=== PATIENT | male | born 1965 | race Hispanic/Latino ===

== ENCOUNTER → 2018-08-13 | Day surgery (SDC) | payer BC ==
[~2018-08-13] MED LIST: ARTHROTEC EC 71 EACH PO; FENTANYL CITRATE/PF 100MCG/2 ML INJ ONE; FERROUS GLUCONATE PO; FISH OIL PO; FLOMAX0.4 MG PO; FOLIC ACID1 MG PO; GLUCAGON FOR INJ 1 MG VIAL ONE; HYOSCYAMINE 0.125 MG TAB ONE; LISINOPRIL10 MG PO; METFORMIN HCL1000 MG PO; MIDAZOLAM HCL 5MG/ML 2ML VIAL ONE; MULTI-VITAMIN1 EACH; NORCO 10-325 T1 EACH PO; NORCO 5-325 TA1 EACH PO; PROPOFOL IV EMULSION 10 MG/ML 50 ML VIAL ONE; TRAMADOL; VITAMIN B-121000 MC1
--- OUTSIDE RECORDS SUMMARY | 2018-08-13 06:15 | XMS REPORT | Clinical Summary ---
Author Author [facility] Address Unknown Phone Unavailable Care Team Providers Care Oracle R12 Developer Name Role Phone Milton Simms MD PCP Allergies No Known Allergies Medications End Date Status Medication Sig Dispensed Refills Start Date Active diclofenac (VOLTAREN) 75 TAKE 1 TABLET 180 tablet 2 MG EC tablet BY MOUTH 9 TWICE A DAY NEEDED Status Hospital, Clinic, or Ordered Dose Route Frequency Start End Date Other Facility Date Administered Medication Ended methylPREDNISolone 40 mg IM once 02/23/19 acetate (DEPO-MEDROL) 19 9 injection 40 mgIndications: Primary osteoarthritis of both knees Ended bupivacaine (MARCAINE) 1 mL inj once 02/23/19 0.25 % (2.5 mg/mL) 19 9 injection 1 mLIndications: Primary osteoarthritis of both knees Ended methylPREDNISolone 40 mg IM once 02/23/19 acetate (DEPO-MEDROL) 19 9 injection 40 mgIndications: Primary osteoarthritis of both knees Ended bupivacaine (MARCAINE) 1 mL inj once 02/23/19 0.25 % (2.5 mg/mL) 19 9 injection 1 mLIndications: Primary osteoarthritis of both knees Active Problems Problem Noted Date Primary osteoarthritis of both knees 03/04/2018 Class 3 severe obesity with body mass index (BMI) of 45.0 to 49.9 in adult 03/04/2018 Encounters Care Team Description Date Type Specialty Mathew Domingo Jr., MD 05/15/2018 Refill Orthopedic Surgery Mathew Domingo Jr., MD Primary osteoarthritis of both knees (Primary Dx); Class 3 severe obesity with body mass index (BMI) of 45.0 to 49.9 in adult, unspecified obesity type, unspecified whether serious comorbidity present (HCC); Enchondroma of left femur 02/23/2018 Office Visit Orthopedic Surgery [place] Chronic pain of both knees (Primary Dx) 02/17/2018 Orders Only Orthopedic Surgery Manjinder [place] MA Pain in both knees, unspecified chronicity (Primary Dx) 08/25/2017 Orders Only Ortho Sports Medicine after 08/12/2017 Family History Medical History Relation Name Comments No Known Problems Brother No Known Problems Father No Known Problems Mother No Known Problems Sister Relation Name Status Comments Brother Father Mother Sister Social History Date Tobacco Use Types Packs/Day Years Used Never Smoker Smokeless Tobacco: Never Used Alcohol Use Drinks/Week oz/Week Comments No Alcohol Habits Answer Date Recorded How often do you have a drink containing alcohol? Never 02/23/2018 How many drinks containing alcohol do you have on Not asked a typical day when you are drinking? How often do you have six or more drinks on one Not asked occasion? Sex Assigned at Date Recorded Not on file Industry Job Start Date Occupation Not on file Not on file Not on file Travel End Travel History Travel Start No recent travel history available. Last Filed Vital Signs Time Taken Vital Sign Reading 02/23/2018 10:29 AM [facility] Blood Pressure 116/75 02/23/2018 10:29 AM [facility] Pulse 62 - Temperature - - Respiratory Rate - - Oxygen Saturation - - Inhaled Oxygen - Concentration 02/23/2018 10:29 AM [facility] Weight 150 kg (330 lb) 02/23/2018 10:29 AM [facility] Height 177.8 cm (5' 10") 02/23/2018 10:29 AM [facility] Body Mass Index 47.35 Plan of Treatment Health Maintenance Due Date Last Done Comments COLONOSCOPY SCREENING 2013 SHINGLES VACCINES (#1) 2013 INFLUENZA VACCINE 09/15/2018 Procedures Comments Procedure Name Priority Date/Time Associated Diagnosis XR KNEE 3 VW BILATERAL Routine 02/23/2018 Chronic pain of both 9:42 AM [facility] knees MT ARTHROCENTESIS Routine 02/23/2018 Primary osteoarthritis of ASPIR&/INJ MAJOR JT/BURSA 9:30 AM [facility] both knees W/O US after 08/12/2017 Results * XR Knee 3 Vw Bilateral (02/23/2018 9:42 AM [facility]) Specimen Narrative Performed At [facility] No comparisons: Right : significant medial joint space narrowing. Otherwise mild OA. Left : significant medial joint space narrowing. Femoral shaft enchondroma noted. No comparison films immediately available. Consider MRI if this has not been done is some time Performing Organization Address City/State/Zipcode Phone Number [facility] [address] [place] [address] * Large Joint Arthrocentesis: knee, Bilateral knee (02/23/2018 9:30 AM [facility]) Narrative Performed At Mathew Domingo Jr., MD 03/04/20185:59 PM Large Joint Arthrocentesis: knee, Bilateral knee Consent given by: patient Site marked: site marked Timeout: Immediately prior to procedure a time out was called to verify the correct patient, procedure, equipment, client support professional and site/side marked as required Supporting Documentation Indications: pain Procedure Details Preparation: Patient was prepped and draped in the usual sterile fashion Location: knee - Bilateral knee Right side: Needle size: 22 G Approach: anteromedial Right knee medications administered: 40 mg methylPREDNISolone acetate 40 mg/mL; 1 mL bupivacaine 0.5 % (5 mg/mL) Patient tolerance: patient tolerated the procedure well with no immediate complications Left side: Needle size: 22 G Approach: anteromedial Left knee medications administered: 40 mg methylPREDNISolone acetate 40 mg/mL; 1 mL bupivacaine 0.5 % (5 mg/mL) Patient tolerance: patient tolerated the procedure well with no immediate complications after 08/12/2017 Insurance Type Payer Benefit Subscriber ID Effective Phone Address Plan / Dates Group PPO BCBS BCBS xxxxxxxxx 2010-P CHOICE resent PPO/DIMITRY MORGAN PPO Advance Directives Patient has advance care planning documents on file. For more information, madhav lobtao contact: Seb Paris [address] [place] [address]
[2018-08-13 09:15] VITALS: BP 119/78
--- NOTE | 2018-08-13 09:23 | Operative Report ---
DATE OF PROCEDURE: 08/13/2018 SURGEON: Jason Baker MD INDICATION FOR COLONOSCOPY: Colorectal cancer screening. MEDICATION: The patient was done under MAC. Please see anesthesiologist's note. PROCEDURE IN DETAIL: With the patient in left lateral decubitus position, the flexible fiberoptic Olympus colonoscope was inserted into the rectum with ease and advanced all the way to the cecum. The scope was then withdrawn slowly. Mucosa overlying the cecum, ascending colon, transverse, descending, sigmoid, and rectum grossly appeared to be within normal limits. Of note, the colon was somewhat irritable and spastic. Visualization was suboptimal. The scope was then retroflexed into the distal rectum and small internal hemorrhoids were noted, none of which was actively bleeding. The scope was then straightened out, it was subsequently withdrawn. The patient tolerated the procedure well. IMPRESSION: 1. Colon is somewhat spastic and irritable. 2. Internal hemorrhoids none actively bleeding. Initiate high-fiber, low-fat diet. Initiate high-fiber supplement. The patient might benefit from a followup colonoscopy in 3 to [address]. Jason Baker MD [facility] [place]/[facility] /[id number] cc: Milton Simms DO
== END | disposition home or self-care (01) ==
LOC: OR 06:13
PROVIDERS: ATTEND Internal Medicine Gastroenterology
DX: Z12.11 Encounter for screening for malignant neoplasm of colon (principal); K64.8 Other hemorrhoids; G47.33 Obstructive sleep apnea (adult) (pediatric); I10 Essential (primary) hypertension; E11.9 Type 2 diabetes mellitus without complications; Z79.84 Long term (current) use of oral hypoglycemic drugs; Z68.42 Body mass index [BMI] 45.0-49.9, adult; Z98.84 Bariatric surgery status
CPT/HCPCS: 36415; 45378; 82948; 93005; J1610; J2250; J2704; J3010